=== PATIENT | female | born 1970 | race Caucasian/White ===

== ENCOUNTER 2016-12-05 11:49 | Outpatient (CLI) | payer OTHER ==
--- NOTE | 2016-12-05 15:00 | RAD ---
RIGHT SHOULDER 2 VIEWS: HISTORY: Disability evaluation. COMPARISON: None. FINDINGS: There is severe osteoarthritic disease of the glenohumeral joint with large osteophyte formation and some arterial surface remodeling of the humeral head. Visualized ribs are unremarkable. Mild dege nerative disease of the acromioclavicular joint. IMPRESSION: 1. Moderate to severe osteoarthritic disease of the right glenohumeral joint. 2. Mild calcific tendinosis of the rotator cuff. POS: [facility] [place]
--- NOTE | 2016-12-05 15:06 | RAD ---
LUMBAR SPINE 3 VIEWS: HISTORY: Disability evaluation. COMPARISON: None. FINDINGS: Five [id number] lumbar-type vertebrae. No lumbosacral transitional vertebrae. Mild degenerati ve disease of both SI joints. There is nearly 1 cm anterolisthesis of L4 over L5. There is mild degenerative disk space height loss at L4-5 along with L1-2, T12-L1, and incomplete ev aluation of T11-T12. IMPRESSION: 1. Grade I-II 10 mm anterolisthesis of L4 over L5. 2. No acute fracture. 3. Mild degenerative disk space height loss of L4-5 as well as L1-2, T12-L1, and T11-12. POS: [facility]
== END 2016-12-05 11:50 | disposition home or self-care (01) ==
LOC: NAV RAD 11:49
PROVIDERS: ATTEND Family Medicine
DX: Z02.71 Encounter for disability determination (principal); M19.011 Primary osteoarthritis, right shoulder; M43.16 Spondylolisthesis, lumbar region
CPT/HCPCS: 72100